=== PATIENT | male | born 1955 | race Hispanic/Latino ===

== ENCOUNTER 2021-06-19 13:18 | Emergency (ER) | payer OTHER, SELFPAY ==
--- NOTE | ~2021-06-19 | CT_ITS ---
EXAMINATION: CT abdomen pelvis w con DATE: 06/19/2021 16:04 INDICATION: Right upper quadrant and epigastric abdominal pain. TECHNIQUE: Computed tomography (CT) of the abdomen and pelvis was performed with 100 mL Omnipaque 350 intravenous contrast. Automated exposure control and iterative reconstruction technique were employe d. The dose-length product was 565.61 mGy-cm. COMPARISON: None. FINDINGS: The visualized portions of the lung bases demonstrate mild atelectasis. No pleural effusion . Cardiomegaly is noted. No pericardial effusion. The liver demonstrates a nodular surface contour, c onsistent with cirrhosis. There is a paraumbilical portacaval shunt. The gallbladder is distended. Th e spleen is normal in size. The pancreas, adrenal glands, and kidneys are normal. There are no dilate d loops of bowel. The appendix is normal. There are no pathologically enlarged lymph nodes. There is no free intraperitoneal fluid. There is mild lumbar spondylosis. IMPRESSION: 1. Cirrhosis of the liver with portal venous hypertension. 2. Gallbladder distention, which may secondary to fasting. Correlate with physical exam to exclude ac marisela cholecystitis. Reviewed, dictated and finalized at location A. IMPRESSION: 1. Cirrhosis of the liver with portal venous hypertension. 2. Gallbladder distention, which may secondary to fasting. Correlate with physi mio exam to exclude acute cholecystitis.
[2021-06-19 13:27] VITALS: BP 122/69; PULSE 98; RESP 14; TEMP 36.1; O2SAT 99
[2021-06-19 14:12] VITALS: BP 117/71; PULSE 86; RESP 15; O2SAT 93
[2021-06-19] MEDS: SODIUM CHLORIDE 0.9% IV 1,000 ML 999 ML IV CONT (14:22)
[2021-06-19] MEDS: ONDANSETRON INJ 4 MG/2 ML VIAL IV PUSH (14:22)
[2021-06-19 14:31] LABS: Basophils Percent Auto 0.4 % (0.2-1.2); Eosinophils Percent Auto 0.1 % (0-4.4); Hematocrit 49.9 % (42.0-52.0); Hemoglobin 17.1 g/dL (14.0-18.0); Immature Granulocyte Absolute 0.02 K/mm3 (0.00-0.031); Immature Granulocyte Percent A 0.2 % (0-0.5); Lymphocytes Absolute Auto 0.68 K/mm3 (0.9-3.2); Lymphocytes Percent Auto 6.8 % (18.3-44.2); Mean Corpuscular HGB Conc 34.3 g/dl (32-36); Mean Corpuscular Hemoglobin 34.6 pg (26-34); Mean Platelet Volume 12.5 fl (7.4-10.4); Monocytes Absolute Auto 0.7 K/mm3 (0.1-0.6); Monocytes Percent Auto 6.9 % (2.6-8.5); Neutrophils Absolute Auto 8.6 K/mm3 (1.3-6.7); Neutrophils Percent Auto 85.6 % (45.5-73.1); Platelet Count Result 97 k/mm3 (150-375); Red Blood Count 4.94 M/mm3 (4.6-6.20); Red Cell Distribution Width 13.5 % (11.5-14.5)
[2021-06-19 14:41] LABS: Lactic Acid Reflex 1.6 mmol/L (0.7-2.1)
[2021-06-19 14:52] LABS: Add Urine Microscopic? YES; Appearance Urine Cloudy (Clear); Bacteria Urine Trace /hpf; Bilirubin Urine Negative (Negative); Blood Urine Negative (Negative); Color Urine Amber (Yellow); Glucose Urine UA Negative (Negative); Hyaline Casts Urine 20-29 /lpf; Ketones Urine Negative (Negative); Leukocyte Esterase Ur Negative LEU/UL (Negative); Mucus Urine Heavy /lpf; Nitrate Urine Negative (Negative); Protein Urine 2+ mg/dL (Negative); Squamous Epithelial Cell Urine Rare /hpf (Few)
[2021-06-19 14:54] LABS: Specific Grav Ur 1.033 (1.001-1.035)
--- NOTE | 2021-06-19 15:08 | ED.GENADULT ---
HPI - General Adult General Chief complaint: Nausea/Vomiting/Diarrhea Stated complaint: Nausea vomiting, abd pain Time Seen by Provider: 06/19/21 13:49 Source: patient History of Present Illness HPI narrative: 65-year-old male presented to the emergency department for evaluation of upper abdominal pain. Patient states that last night he was having full body pain and did have a subjective fever. Patient states when he woke up this morning he was only having upper abdominal pain. Patient does report associated nausea and vomiting and diarrhea. Patient does have a previous history of alcohol abuse but family states he has not been drinking any alcohol over the last month. Family member acted as combat information center officer. she was offered to use the translation computer but she declined. Related Data Allergies Allergy/AdvReac Type Severity Reaction Status Date / Time No Known Allergies Allergy Unverified 08/22/18 19:25 Review of Systems Review of Systems: CONSTITUTIONAL: Subjective fever EYES: Denies visual changes, redness, or discharge. ENT: Denies rhinorrhea, congestion, sore throat, or otalgia. CARDIOVASCULAR: Denies chest pain, palpitations, or edema. RESPIRATORY: Denies cough or dyspnea. GASTROINTESTINAL: Right upper quadrant pain/epigastric pain. Nausea and vomiting diarrhea GENITOURINARY: Denies dysuria or hematuria. SKIN: Denies rash or itching. MUSCULOSKELETAL: Denies back pain, joint pain, or myalgia. NEUROLOGIC: Denies headache, numbness, or weakness. Exam Narrative: APPEARANCE: Well appearing, no pain, no distress, well-nourished. HEAD: normocephalic, atraumatic. EYES: PERRLA/EOMI, conjunctivae clear. NOSE: Normal no drainage NECK: Supple. No adenopathy, no masses. RESPIRATORY: Airway patent, respirations nonlabored. Clear to auscultation bilaterally, no rales, rhonchi, wheezing. CARDIOVASCULAR: Regular rate and rhythm without murmurs rubs or gallops. ABDOMINAL: Right upper quadrant epigastric tenderness to palpation. No peritoneal signs. Otherwise benign abdomen. MUSCULOSKELETAL: Moves all extremities. Strength/ROM intact, No edema, No calf tenderness. NEURO: Alert. Cranial nerves II through XII intact. Grossly intact SKIN: Warm, dry. Normal Color Course Course Emergency Course: Patient does have elevated liver enzymes. And a distended gallbladder on CT. Case was discussed with Dr. Ovalles. Patient is afebrile with no leukocytosis. Dr. ovalles felt that the patient was not having acute cholecystitis but that his liver enzymes were most likely due to his cirrhosis. He felt the patient would be suitable for discharge to home with close outpatient follow-up. He did not feel the patient was a strong surgical candidate due to his history of cirrhosis. Patient did feel improved with treatment in the department. Patient was started on Augmentin. Patient and patient's family were updated on the results of the work-up and the importance of close follow-up. Patient was informed on reasons to return to the emergency department including worsening pain or fever. On repeat exam patient had minimal tenderness to palpation and was resting comfortably. Vital Signs Vital signs: Vital Signs Temperature 96.9 F L 06/19/21 13:27 Pulse Rate 98 06/19/21 13:27 Respiratory Rate 14 06/19/21 13:27 Blood Pressure 122/69 06/19/21 13:27 Pulse Oximetry 99 06/19/21 13:27 Temperature 96.9 F L 06/19/21 13:27 Pulse Rate 96 06/19/21 16:39 Respiratory Rate 16 06/19/21 16:39 Blood Pressure 134/77 06/19/21 16:39 Pulse Oximetry 94 06/19/21 16:39 Medical Decision Making Vital Signs Vital Signs: Vital Signs Temperature 96.9 F L 06/19/21 13:27 Pulse Rate 98 06/19/21 13:27 Respiratory Rate 14 06/19/21 13:27 Blood Pressure 122/69 06/19/21 13:27 Pulse Oximetry 99 06/19/21 13:27 Temperature 96.9 F L 06/19/21 13:27 Pulse Rate 96 06/19/21 16:39 Respiratory Rate 16 06/19/21 16:39 Blood Pressure
[2021-06-19 15:32] LABS: Alanine Aminotransferase 68 U/L (4-50); Albumin Level 4.2 g/dL (3.5-5.1); Alkaline Phosphatase 165 U/L (38-126); Anion Gap 9 mmol/L (8-16); Aspartate Amino Transferase 144 U/L (17-59); Bilirubin,Total 2.3 mg/dL (0.2-1.3); Blood Urea Nitrogen 21 mg/dL (9-20); Calcium 8.5 mg/dL (8.4-10.2); Carbon Dioxide 19 mmol/L (22-30); Chloride 112 mmol/L (98-107); Estimated CRCL calculation 67 ml/min; Estimated Glomerular Filt Rate > 60; Glucose 139 mg/dL (65-110); Lipase 73 U/L (23-300); Potassium 3.7 mmol/L (3.4-5.0); Sodium 140 mmol/L (137-145)
[2021-06-19] MEDS: HYDROmorphone HCL INJ (*CRX) 1 MG/ML SYR IV PUSH (15:52)
[2021-06-19 15:53] VITALS: BP 133/77; PULSE 93; RESP 15; O2SAT 96
--- NOTE | 2021-06-19 15:56 | PC.NURSE ---
Pt to CT scan via stretcher at this time.
[2021-06-19 16:39] VITALS: BP 134/77; PULSE 96; RESP 16; O2SAT 94
[2021-06-19] MEDS: AMOXICILLIN/CLAVULANATE K 875-125 MG TAB 1 TABLET PO (17:06)
[2021-06-19 17:21] LABS: INR 1.4; Prothrombin Time 16.9 Seconds (11.1-14.7)
== END 2021-06-19 17:38 | disposition home or self-care (01) ==
PROVIDERS: Emergency Provider Emergency Medicine; PCP Registered Nurse
DX: R10.10 Upper abdominal pain, unspecified (principal); K74.60 Unspecified cirrhosis of liver; K76.6 Portal hypertension
CPT/HCPCS: 36415; 74177; 80053; 81001; 83605; 83690; 85025; 85610; 87086; 87088; 96361; 96374; 96375; 99284; A9270; J1170; J2405; J7030; Q9967

== ENCOUNTER 2022-03-08 11:28 | Emergency (ER) | payer OTHER, SELFPAY ==
[2022-03-08 11:47] VITALS: BP 145/67; PULSE 70; RESP 16; TEMP 36.9; O2SAT 99
--- NOTE | 2022-03-08 12:35 | ED.URI ---
HPI - URI/Sore Throat General Chief Complaint: Upper Respiratory Infection Stated Complaint: Bodyaches,Chills,Cough Time Seen by Provider: 03/08/22 12:28 Source: patient and RN notes reviewed Mode of arrival: ambulatory Limitations: no limitations History of Present Illness HPI Narrative: 66-year-old male presented for complaint of body aches, cough, headache for 1 week. He also endorses upper respiratory symptoms for about a month. He has not taken anything for symptoms. He denies shortness of breath, wheezing, nausea, vomiting, diarrhea, fevers or chills. He states the body aches are the most concerning. Patient is primarily Amharic-speaking and requests his family member to translate today. Son reports he appears to be short of breath with exertion. MD elicited complaint: cough Related Data Home Medications Medication Instructions Recorded Confirmed atorvastatin 40 mg tablet 40 mg PO DAILY 03/08/22 03/08/22 famotidine 20 mg tablet 20 mg PO DAILY 03/08/22 03/08/22 meloxicam 15 mg tablet 15 mg PO DAILY 03/08/22 03/08/22 nadolol 20 mg tablet 20 mg PO DAILY 03/08/22 03/08/22 nitroglycerin 0.4 mg sublingual 0.4 mg sublingual DIRECTED 03/08/22 03/08/22 tablet (Nitrostat) Allergies Allergy/AdvReac Type Severity Reaction Status Date / Time No Known Allergies Allergy Verified 03/08/22 11:48 Review of Systems Review of Systems: ROS per HPI Exam Narrative: GENERAL: Ill-appearing, nontoxic EYES: PERRLA, conjunctivae clear ENT: Mucous membranes moist. TMs pearly hicks with dull light reflex bilaterally; no tragal tenderness. CHEST: Clear to auscultation, breath sounds equal. No wheezing, rhonchi, rales, or stridor. No respiratory distress, speaks in full sentences. HEART: Regular rate and rhythm. SKIN: Warm, dry, no rash. NEURO: Alert and oriented x3. PSYCH: Normal mood and affect Course Course Emergency Course: Patient is aware of diagnosis, understands and agrees to treatment plan. Anticipatory guidance given. Patient agrees to follow-up as directed and is aware of reasons to seek care at the emergency department. Portions of this record may have been created with voice recognition software Level of Care: Express Care Visit Vital Signs Vital signs: Vital Signs Temperature 98.4 F 03/08/22 11:47 Pulse Rate 70 03/08/22 11:47 Respiratory Rate 16 03/08/22 11:47 Blood Pressure 145/67 H 03/08/22 11:47 Pulse Oximetry 99 03/08/22 11:47 Oxygen Delivery Room Air 03/08/22 11:47 Temperature 98.4 F 03/08/22 11:47 Pulse Rate 70 03/08/22 11:47 Respiratory Rate 16 03/08/22 11:47 Blood Pressure 145/67 H 03/08/22 11:47 Pulse Oximetry 99 03/08/22 11:47 Oxygen Delivery Room Air 03/08/22 11:47 reviewed MDM - URI/Sore Throat MDM Narrative Medical decision making narrative: Advised supportive measures and signs/symptoms to go to the ER. Pt is appropriate for outpt treatment and f/u. Differential Diagnosis Differential diagnosis: Likely upper respiratory infection, sinusitis, viral infection and bronchitis Discharge Plan Discharge Clinical Impression: Upper respiratory infection Patient Disposition: Home, Self-Care Condition: Stable Instructions: Antibiotic Form, Rhinosinusitis (ED) Additional Instructions: Avoid crowds until you do not have a fever and symptoms are improved Take medication as directed Recommend Flonase spray and Zyrtec (or Claritin/Eve) over the counter Cough syrup may cause drowsiness; avoid driving or take it at night time. Tylenol 1000mg every 8 hours as needed for pain/bodyaches Symptomatic treatment includes: rest, fluids, and increase humidity of the air at home. Follow up with your primary care provider in 1 week Go to the ER for worsening symptoms or concerns Prescriptions: New prednisone 50 mg tablet 50 mg PO DAILY Qty: 5 0RF doxycycline hyclate 100 mg tablet 100 mg PO BID 5 Days Qty: 10 0RF No Action
== END 2022-03-08 12:48 | disposition home or self-care (01) ==
PROVIDERS: Emergency Provider Nurse Practitioner Family; PCP Registered Nurse
DX: J06.9 Acute upper respiratory infection, unspecified (principal)
CPT/HCPCS: 99213; G0463

== ENCOUNTER 2022-05-29 10:54 | Emergency (ER) | payer OTHER, SELFPAY ==
--- NOTE | 2022-05-29 10:55 | ED.BACK ---
HPI - Back Pain/Injury General Chief Complaint: Urogenital-Male Stated Complaint: back pain Time Seen by Provider: 05/29/22 10:55 Source: patient and geodetic surveyor technologist (Grandson) Mode of arrival: ambulatory Limitations: no limitations History of Present Illness HPI Narrative: Mr. Mayberry is a 66-year-old male patient presenting to the clinic today with complaints of thoracic back pain x2 months. He reports pain is worse with movement and states that sharp times. Currently rates pain 7/10. He also reports some pain with urination at times. He denies any fever or chills. He denies any difficulty urinating. He denies any saddle anesthesia or loss of bowel bladder. He denies any known injury to his back. 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 Related Data Home Medications Medication Instructions Recorded Confirmed atorvastatin 40 mg tablet mg 05/29/22 famotidine 20 mg tablet mg 05/29/22 05/29/22 nadolol 20 mg tablet mg 05/29/22 Allergies Allergy/AdvReac Type Severity Reaction Status Date / Time No Known Allergies Allergy Verified 05/29/22 11:06 Review of Systems Review of Systems: Pertinent positives per HPI. Patient denies any fever, chills, rash, headache, visual changes, dizziness, cough, runny nose, sore throat, shortness of breath, chest pain, palpitations, nausea, vomiting, diarrhea, constipation, abdominal pain, or any urinary issues. PMFSH Comments At the time of my signature, I reviewed and agree with the nursing past medical, surgical, social, and family history. There is no relevant family history pertinent to the patient complaint. Exam Narrative: General: Well-developed, well nourished, in no apparent distress Head: Normocephalic, atraumatic. Cardio: Regular rate and rhythm, s1 and s2 normal, no murmur appreciated. Resp: Clear to auscultation bilaterally, no rhonchi, rales, wheezing or rubs. Musculoskeletal: No deformity, non-tender to palpation, grossly normal range of motion, pain with bending and flexion of the thoracic back, bilateral lower muscle strength strong and equal, peripheral pulse strong, patellar reflexes 2+, no edema, no cyanosis, normal gait and station Course Course Emergency Course: Portions of this record may have been created with voice recognition software. Level of Care: Express Care Visit Vital Signs Vital signs: Vital Signs Temperature 36.6 C 05/29/22 11:09 Pulse Rate 68 05/29/22 11:09 Respiratory Rate 16 05/29/22 11:09 Blood Pressure 136/59 L 05/29/22 11:09 Pulse Oximetry 99 05/29/22 11:09 Oxygen Delivery Room Air 05/29/22 11:09 Temperature 36.6 C 05/29/22 11:09 Pulse Rate 68 05/29/22 11:09 Respiratory Rate 16 05/29/22 11:09 Blood Pressure 136/59 L 05/29/22 11:09 Pulse Oximetry 99 05/29/22 11:09 Oxygen Delivery Room Air 05/29/22 11:09 Vital signs reviewed MDM - Back Pain/Injury MDM Narrative Medical decision making narrative: At the time of visit patient is resting comfortably on the exam table. UA was obtained and was negative for any infection or blood. I suspect the patient has thoracic back/muscle strain. Will send in Rx for Flexeril and Naproxen. Supportive care was discussed with the patient and his grandson and they voiced understanding. Differential Diagnosis Differential diagnosis: Likely lumbar radiculopathy, sciatica, pyelonephritis, thoracic back pain and other (Thoracic back strain, UTI, prostatitis, constipation) Lab Data Labs: Urine Glucose Negative Reference Range: Negative Urine Bilirubin Negative Reference Range: Negative Urine Ketone Negative Reference Range: Negative Urine Specific [place] 1.030
[2022-05-29 11:09] VITALS: BP 136/59; PULSE 68; RESP 16; TEMP 36.6; O2SAT 99
== END 2022-05-29 11:42 | disposition home or self-care (01) ==
PROVIDERS: Emergency Provider Nurse Practitioner Family; PCP Registered Nurse
DX: M54.6 Pain in thoracic spine (principal)
CPT/HCPCS: 81003; 99213; G0463

== ENCOUNTER 2024-04-22 15:42 | Emergency (ER) | payer OTHER, SELFPAY ==
--- NOTE | ~2024-04-22 | CT_ITS ---
EXAMINATION: CTA brain carotid DATE: 04/23/2024 6:12 [employer]LECT[employer]IC [employer]ANT MECH[employer]ICAL ENGINEER INDICATION: Vertigo TECHNIQUE: Computed tomographic angiography (CTA) of the head was performed without and with 100 mL O mnipaque-350 intravenous contrast. CTA of the neck was performed with intravenous contrast. The dose- length product was 1747.88 mGy-cm. Maximum intensity projection and volume rendered 3D-reconstruction s were created by the technologist on a separate workstation. COMPARISON: None. FINDINGS: HEAD CTA: No acute intracranial hemorrhage, infarction, mass or mass effect. Generalized atrophy. The re are scattered mild periventricular and subcortical white matter changes, most likely related to sm all vessel ischemic disease (microangiopathy). There is intracranial atherosclerosis. Basilar cistern s are patent. Paranasal sinuses and mastoids are pneumatized. No depressed skull fractures. Mild muco nicole thickening of the maxillary sinuses. Vertebral arteries are symmetric and codominant. Intracrania l arteries are unremarkable without significant stenosis, occlusion or aneurysm. NECK CTA: There is mild atherosclerosis of the common and internal carotid arteries with less than 20 % stenosis. No evidence for dissection or occlusion. Thyroid gland contains multiple small subcentime ter hypodensities, likely benign. There is atherosclerosis of the aorta. Mild mediastinal lymphadenop athy, likely reactive. Lung parenchyma is unremarkable. IMPRESSION: 1: No acute intracranial abnormality. 2: No significant vascular abnormality of the head or neck. Reviewed, dictated and finalized at location A. [employer]ANT MECHANICAL ENGINEER
--- NOTE | ~2024-04-22 | CT_ITS ---
EXAMINATION: Consultation CT DATE: 04/22/2024 23:56 INDICATION: PLEURAL EFFUSION CARDIOMEGALLY TECHNIQUE: Computed tomography (CT) of the chest was performed with 100 mL Omnipaque-350 intravenous contrast. Automated exposure control and iterative reconstruction technique were employed. The dose-l ength product was .00 mGy-cm. COMPARISON: None. FINDINGS: CHEST: Thoracic aorta: No significant dilation. No dissection. Mild aortic atherosclerotic calcification. Lung parenchyma and airways: Peripheral and basilar reticular and groundglass opacities with subtle a reas of bronchiectasis. No significant honeycombing or subpleural sparing. Patent airways. Thoracic inlet, axillae and chest wall: No thyroid or soft tissue mass. No axillary lymphadenopathy. Mediastinum: No mass or lymphadenopathy. Heart and pericardium: Mild cardiomegaly. No pericardial effusion. Coronary artery calcifications: Mild. Pleura: No effusion or mass. Upper abdomen: Nodular liver border. Thoracic bones: No acute osseous finding in the chest. IMPRESSION: No acute thoracic process detected. 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 Mild cardiomegaly. No pleural effusion is detected. Cirrhotic change in the liver. Reviewed, dictated and finalized at location K. T[employer] ASS[employer] GUNNER
--- NOTE | ~2024-04-22 | XR_ITS ---
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 RESULT: Lines, tubes, and devices: None. Lungs and pleura: Mild diffuse reticular opacities. Cardiomediastinal silhouette: Mild cardiomegaly. Other: No acute osseous or upper abdominal finding. IMPRESSION: Mild chronic interstitial change. Mild cardiomegaly. Reviewed, dictated and finalized at location K. STAND VENDOR
[2024-04-22 16:23] VITALS: BP 142/67; PULSE 65; RESP 16; TEMP 36.7; O2SAT 96
--- OUTSIDE RECORDS SUMMARY | 2024-04-22 16:27 | XMS_ITS | Patient Health Summary ---
Author Organization [facility] Address [address] [place] [address] Care Team Providers Care Sawmill Tally Clerk Name Role Phone Eileen Joy MD Primary Care Provider [phone] Note from [facility],non-owned Affiliates and Associated Physician Practices is amultiple site organization consisting of ambulatory clinics and hospital sitesin [place], [place], [place] and [place]. This disclosure is being madepursuant to the Care Everywhere program and may not contain all information available regarding this patient. Last updated 17.[facility] [employer] Allergies No known active allergies Medications * Be aware that medications may not be up to date on this document. Alwaysverify current medications with the patient. * valsartan (Diovan) 80 MG tablet(Started 11/11/2023) 1 (one) tablet once daily * atorvastatin (Lipitor) 40 MG tablet(Started 10/30/2023) Take 1 (one) tablet by mouth once daily * famotidine (Pepcid) 20 MG tablet(Started 11/18/2023) Take 1 (one) tablet by mouth 2 times daily * nadolol (Corgard) 20 MG tablet(Started 10/30/2023) Take 1 (one) tablet by mouth once daily * fluticasone propionate (Flonase) 50 MCG/ACT nasal spray(Started 08/06/2023) [place] 2 (two) sprays into each nostril once daily * ondansetron (Zofran) 4 MG tablet(Started 11/26/2023) Take 1 (one) tablet by mouth every 6 hours as needed for Nausea/Vomiting * pantoprazole EC (Protonix) 40 MG tablet(Started 11/26/2023) Take 1 (one) tablet by mouth once daily Social History Tobacco Use Types Packs/Day Years Used Date Smoking Tobacco: Never Smokeless Tobacco: Never Tobacco Cessation:Counseling Given: Not Answered Alcohol Use Standard Drinks/Week Comments Yes 100 (1 standard drink = 0.6 oz p ure alcohol) last drink was 1 month ago Sex and Gender Information Value Date Recorded Sex Assigned at Not on file Gender Identity Not on file Sexual Orientation Not on file Last Filed Vital Signs Vital Sign Reading Time Taken Comments Blood Pressure 132/86 11/25/2023 5:32 PM CDT Pulse 85 11/25/2023 5:32 PM CDT Temperature 37.5 ??C (99.5 ??F) 11/25/2023 5:32 PM CD T Respiratory Rate 16 11/25/2023 5:32 PM CDT Oxygen Saturation 94% 11/25/2023 5:32 PM CDT Inhaled Oxygen Concentration - - Weight 85.7 kg (189 lb) 11/25/2023 5:32 PM CDT Height 162.6 cm (5' 4 ) 11/25/2023 5:32 PM CDT Body Mass Index 32.44 11/25/2023 5:32 PM CDT Procedures * XR CHEST 1VW PORTABLE(Performed 11/26/2023) Performed for Nausea and vomiting, unspecified vomiting type, Gastritis and duodenitis * PT-INR [facility](Performed 11/26/2023) * CBC W AUTO DIFFERENTIAL(Performed 11/26/2023) * BLOOD TYPE VERIFICATION(Performed 11/26/2023) * CT ABDOMEN PELVIS W CONTRAST(Performed 11/25/2023) Performed for Nausea and vomiting, unspecified vomiting type * TROPONIN-I HIGH SENSITIVE REFLEX 1HOUR(Performed 11/25/2023) * EKG 12-LEAD(Performed 11/25/2023) Performed for Nausea and vomiting, unspecified vomiting type * TYPE + SCREEN PANEL(Performed 11/25/2023) * TROPONIN-I HIGH SENSITIVE BASELINE + 1HR(Performed 11/25/2023) * TROPONIN-I HIGH SENSITIVE(Performed 11/25/2023) * LIPASE BLOOD(Performed 11/25/2023) * COMPREHENSIVE METABOLIC PANEL(Performed 11/25/2023) * CBC W AUTO DIFFERENTIAL(Performed 11/25/2023) * EKG 12-LEAD(Performed 11/25/2023) Performed for Nausea and vomiting, unspecified vomiting type Results * XR CHEST 1VW PORTABLE (11/26/2023 10:23 AM CDT) Anatomical Region Laterality Modality Chest Radiographic [place] ging 11/26/2023 10:2 3 AM CDT Narrative 11/26/2023 11:05 AM CDT PROCEDURE: ??XR CHEST 1VW PORTABLE, DATE/TIME OF EXAM: ??11/26/2023 10:23 AM, LOCATION ??[facility] INDICATION: R11.2: Nausea and vomiting, unspecified vomiting type K29.90: Gastritis and duodenitis ADDITIONAL CLINICAL INFORMATION: Ordering Provider Reason For Exam: ??infiltrates ? COMPARISON: None. TECHNIQUE: Frontal radiograph of the chest. FINDINGS/IMPRESSION: Mild bibasilar opacities may represent atelectasis, infection, and/or aspiration. The upper lung navarro are clear. No pleural effusion or pneumothorax. The cardiomediastinal silhouette is normal for portable technique. Atherosclerotic calcification of the aorta. There are healed/healing right lower rib fractures laterally. No acute osseous abnormality is evident. Report dictated by John Ling MD, (Mobile Engineer). I, Rosa Rosales MD have personally reviewed and interpreted this examination/study. > Interpreting Provider: Rosa Rosales MD on 11/26/2023 11:05 AM Procedure Note Rosa Rosales MD - 11/26/2023 PROCEDURE: XR CHEST 1VW PORTABLE, DATE/TIME OF EXAM: 11/26/2023 10:23AM, LOCATION [facility] INDICATION: R11.2: Nausea and vomiting, unspecified vomiting type K29.90: Gastritis and duodenitis ADDITIONAL CLINICAL INFORMATION: Ordering Provider Reason For Exam: infiltrates ? COMPARISON: None. TECHNIQUE: Frontal radiograph of the chest. FINDINGS/IMPRESSION: Mild bibasilar opacities may represent atelectasis, infection, and/or aspiration. The upper lung navarro are clear. No pleural effusion or pneumothorax. The cardiomediastinal silhouette is normal for portable technique. Atherosclerotic calcification of the aorta. There are healed/healing right lower rib fractures laterally. No acute osseous abnormality is evident. Report dictated by John Ling MD, (Mobile Engineer). I, Rosa Rosales MD have personally reviewed and interpreted this examination/study. > Interpreting Provider: Rosa Rosales MD on 11/26/2023 11:05 AM Kelsey Shepherd MD DIAGNOSTIC IMAGING O RDERABLES * (ABNORMAL) PT-INR [facility] (11/26/2023 10:06 AM CDT) Pathologist [facility] PT 16.4(H) 12.1 - 14.8 Seconds 11/26/2023 10:53 AM T [facility]OR[facility]ORY [facility] INR 1.4 See Comment 11/26/2023 10:53 AM [facility] Comment:The suggested therap eutic range for standard coumadin (warfarin) therapy is an INR of 2.0-3.0. For high-risk patients (Mechanical Mitral Valve Prosthesis, etc.), the suggested prophylactic therapeutic range is an INR of 2.5-3.5. Blood BLOOD SPECIMEN / Unknown Venipuncture / Unknown 11/26/2023 10:06 AM CDT 11/26/2023 10:13 AM CDT Kelsey Shepherd MD LAB - COAGULATION OR DERABLES [address] [address], [facility] [phone] * (ABNORMAL) CBC W AUTO DIFFERENTIAL (11/26/2023 10:06 AM CDT) Only the most recent of2 resultswithin the time period is included. WBC 6.2 4.0 - 10.7 x10E9/L 11/26/2023 10:44 AM [facility] RBC Count 4.23(L) 4.30 - 5.80 x10E12/L 11/26/2023 10:44 AM [facility] Hemoglobin 14.6 13.3 - 17.5 g/dL 11/26/2023 10:44 AM [facility] Hematocrit 41.9 38.7 - 51.1 % 11/26/2023 10:44 AM [facility] MCV 99.1(H) 80.0 - 98.0 fL 11/26/2023 10:44 AM [facility] MCH 34.5(H) 26.7 - 33.6 pg 11/26/2023 10:44 AM [facility] MCHC 34.8 31.7 - 36.3 g/dL 11/26/2023 10:44 AM [facility] RDW-CV 13.8 11.3 - 14.8 % 11/26/2023 10:44 AM [facility] Platelet Count 62(L) 150 - 420 x10E9/L 11/26/2023 10:44 AM [facility] MPV 12.6(H) 7.8 - 11.4 fL 11/26/2023 10:44 AM [facility] Neutrophil % 54.5 41.0 - 74.0 % 11/26/2023 10:44 AM [facility] Lymphocyte % 35.3 17.0 - 47.0 % 11/26/2023 10:44 AM [facility] Monocyte % 8.4 3.0 - 11.0 % 11/26/2023 10:44 AM [facility] Eosinophil % 1.0 0.0 - 7.0 % 11/26/2023 10:44 AM [facility] Basophil % 0.6 0.0 - 1.6 % 11/26/2023 10:44 AM [facility] Immature Granulocytes % 0.2 0.0 - 1.0 % 11/26/2023 10:44 AM [facility] Neutrophil Absolute 3.36 1.60 - 7.50 x10E9/L 11/26/2023 10:44 AM [facility] Lymphocyte Absolute 2.18 1.00 - 4.40 x10E9/L 11/26/2023 10:44 AM [facility] Monocyte Absolute 0.52 0.15 - 1.00 x10E9/L 11/26/2023 10:44 AM [facility] Eosinophil Absolute 0.06 0.00 - 0.60 x10E9/L 11/26/2023 10:44 AM [facility] Basophil Absolute 0.04 0.00 - 0.13 x10E9/L 11/26/2023 10:44 AM CDT [facility] Blood BLOOD SPECIMEN / Unknown Venipuncture / Unknown 11/26/2023 10:06 AM CDT 11/26/2023 10:25 AM CDT Kelsey Shepherd MD LAB - HEMATOLOGY ORD ERABLES [facility] [address] [place] [address], [facility] [phone] * BLOOD TYPE VERIFICATION (11/26/2023 7:27 AM CDT) ABO Rh O POS 11/26/2023 8:0 1 AM CDT [facility] BLOOD BANK LAB Blood Bank BLOOD SPECIMEN / Unknown Venipuncture / Unknown 11/26/2023 7:27 AM CDT 11/26/2023 7:34 AM CDT Reymundo Wilkins MD LAB - BLOOD BANK ORD [employer] Performing Organization Address City/[facility]/ZIP Co de Phone Number [facility] B[facility]OD BANK LAB [address] [place] [address], [facility] [phone] * CT Abdomen Pelvis W Contrast (11/25/2023 9:24 PM CDT) Anatomical Region Laterality Modality Abdomen, Pelvis Computed Tomogra phy 11/25/2023 9:27 PM CDT Impressions 11/25/2023 9:52 PM CDT Impression: 1.The first and second portions of the duodenum appear edematous thickened with associated surrounding fat stranding which may represents duodenitis. No discrete evidence of perforation. No free air is identified. 2.Suggestion of hepatic parenchymal disease with the sequelae of portal hypertension. 3.Reticular based opacities may represent sequelae of interstitial disease versus atelectasis/scarring. > Dictated by Eamon Senior DO (associate vice president). Hernando Salazar MD have personally reviewed and interpreted this examination/study. > Interpreting Provider: Hernando Srinivasan MD on 11/25/2023 9:52 PM Narrative 11/25/2023 9:52 PM CDT PROCEDURE: ??CT ABDOMEN PELVIS W CONTRAST, DATE/TIME OF EXAM: ??11/25/2023 9:24 PM, LOCATION ??[facility] INDICATION: R11.2: Nausea and vomiting, unspecified vomiting type ADDITIONAL CLINICAL INFORMATION: Ordering Provider Reason For Exam: ???perf COMPARISON: None. TECHNIQUE: CT of the abdomen and pelvis was performed following the uneventful administration of 100 mL of Isovue 370 intravenous contrast according to standard protocol. Findings: Lower Chest: Reticular based opacities may represent sequelae of interstitial disease versus atelectasis/scarring. There is otherwise dependent atelectasis bilaterally. The coronary arteries are atherosclerotic. Liver: The liver has a nodular surface, may represent hepatic parenchymal disease. Gallbladder and Bile Ducts: Normal. Spleen: Normal. Pancreas: Normal. Adrenals: Normal. Kidneys: Normal. Gastrointestinal: The stomach appears unremarkable. The first and second portions of the duodenum appear edematous thickened which may represents duodenitis. No discrete evidence of perforation. There is associated mild fat stranding surrounding the first and second portions of the duodenum. The remainder of the small bowel appears within normal limits. Normal appendix. Mesentery/Peritoneum/Retroperitoneum: No free fluid in the abdomen or pelvis. No free intraperitoneal air. No abdominal or retroperitoneal lymphadenopathy. Bladder: Normal. Reproductive Organs: The prostate is normal. Vasculature: Atherosclerotic calcification of the aorta and its branch vessels. Sequelae of portal hypertension including perigastric varices, and perisplenic varices. There is also subtle stranding surrounding the celiac trunk and superior mesenteric artery takeoffs. This is nonspecific. Bones: Bone windows demonstrate no suspicious lytic or blastic lesions. The visible osseous structures are intact. Mild to moderate degenerative changes within the spine. Soft tissues: Normal. Procedure Note Esme Srinivasan MD - 11/25/2023 PROCEDURE: CT ABDOMEN PELVIS W CONTRAST, DATE/TIME OF EXAM: 49:24 PM, LOCATION [facility] INDICATION: R11.2: Nausea and vomiting, unspecified vomiting type ADDITIONAL CLINICAL INFORMATION: Ordering Provider Reason For Exam: ?perf COMPARISON: None. TECHNIQUE: CT of the abdomen and pelvis was performed following the uneventful administration of 100 mL of Isovue 370 intravenous contrast according to standard protocol. Findings: Lower Chest: Reticular based opacities may represent sequelae of interstitial disease versus atelectasis/scarring. There is otherwise dependent atelectasis bilaterally. The coronary arteries are atherosclerotic. Liver: The liver has a nodular surface, may represent hepatic parenchymaldisease. Gallbladder and Bile Ducts: Normal. Spleen: Normal. Pancreas: Normal. Adrenals: Normal. Kidneys: Normal. Gastrointestinal: The stomach appears unremarkable. The first and second portions of the duodenum appear edematous thickened which may represents duodenitis. No discrete evidence of perforation. There is associated mild fat stranding surrounding the first and second portions of the duodenum. The remainderof the small bowel appears within normal limits. Normal appendix. Mesentery/Peritoneum/Retroperitoneum: No free fluid in the abdomen or pelvis. No free intraperitoneal air. No abdominal or retroperitoneal lymphadenopathy. Bladder: Normal. Reproductive Organs: The prostate is normal. Vasculature: Atherosclerotic calcification of the aorta and its branch vessels.Sequelae of portal hypertension including perigastric varices, and perisplenic varices. There is also subtle stranding surrounding the celiac trunk and superior mesenteric artery takeoffs. This is nonspecific. Bones: Bone windows demonstrate no suspicious lytic or blastic lesions. The visible osseous structures are intact. Mild to moderate degenerative changes within the spine. Soft tissues: Normal. Impression: 1.The first and second portions of the duodenum appear edematousthickened with associated surrounding fat stranding which may representsduodenitis. No discrete evidence of perforation. No free air is identified. 2.Suggestion of hepatic parenchymal disease with the sequelae of portal hypertension. 3.Reticular based opacities may represent sequelae of interstitialdisease versus atelectasis/scarring. > Dictated by Eamon Senior DO (associate vice president). IHernando MD have personally reviewed and interpreted this examination/study. > Interpreting Provider: Hernando Srinivasan MD on 11/25/2023 9:52 PM [address]ym[address] Wilkins MD CT ORDERABLES * TROPONIN-I HIGH SENSITIVE REFLEX 1HOUR (11/25/2023 7:58 PM CDT) Troponin I High Sensitive <3 <=35 ng/L 11/25/2023 8:55 PM CDT [facility] Delta Troponin I HS 11/25/2023 8:55 PM CDT [facility] Comment:Delta value intentio lori not calculated. Baseline to 1 hour specimen collection interval exceeded. Blood BLOOD SPECIMEN / Unknown Venipuncture / Unknown 11/25/2023 7:58 PM CDT 11/25/2023 8:19 PM CDT Reymundo Wilkins MD LAB - CHEMISTRY HERLINDA HERNÁNDEZ Performing Organization Address City/[facility]/ZIP Co de Phone Number [facility] [address] [place] [address], [facility] [phone] * EKG 12-LEAD (11/25/2023 6:32 PM CDT) Only the most recent of2 resultswithin the time period is included. Ventricular Rate 68 BPM [facility] MUSE Atrial Rate 68 BPM [facility] P-R Interval 146 ms [facility] QRS Duration ms 90 ms [facility] Q-T Interval ms 450 ms [facility] MUSE QTC Calculation (Bezet) 478 ms SL MUSE Calculated P Mission 45 degrees [facility] MUSE Calculated R Mission -2 degrees [facility] MUSE Calculated T Mission 21 degrees [facility] MUSE Interpretation EKG NORMAL SINUS RHYTHM MINIMAL VOLTAGE CRITERIA FOR LVH, MAY BE NORMAL VARIANT ( R in aVL ) CANNOT RULE OUT ANTERIOR INFARCT , AGE UNDETERMINED ABNORMAL ECG WHEN COMPARED WITH ECG OF 25-NOV-2023 17:36, NO SIGNIFICANT CHANGE WAS FOUND Confirmed by MAR ??PRABHAKAR NIETO ([id number]) on 12/03/2023 5:55:37 PM [facility] MUSE 11/25/2023 6:32 PM CDT 12/03/2023 5:55 PM CDT Reymundo Wilkins MD ECG ORDERABLES Performing Organization Address City/[facility]/ZIP Co de Phone Number [facility] MUSE * TROPONIN-I HIGH SENSITIVE BASELINE + 1HR (11/25/2023 6:25 PM CDT) Troponin I High Sensitive <3 <=35 ng/L 11/25/2023 7:19 PM CDT [facility] Blood BLOOD SPECIMEN / Unknown Venipuncture / Unknown 11/25/2023 6:25 PM CDT 11/25/2023 6:42 PM CDT Reymundo Wilkins MD LAB - CHEMISTRY HERLINDA HERNÁNDEZ [facility] [address] [place] [address], [place] [phone] * TYPE + SCREEN PANEL (11/25/2023 6:25 PM CDT) [facility] Antibody Screen NEG 7:24 PM CDT [facility] BLOOD BANK LAB ABO Rh O POS 11/25/2023 7:24 PM CDT [facility] BLOOD BANK LAB Blood Bank BLOOD SPECIMEN / Unknown Venipuncture / Unknown 11/25/2023 6:25 PM CDT 11/25/2023 6:42 PM CDT Reymundo Wilkins MD LAB - BLOOD BANK ORD KARTHIK [facility] BLOOD [facility]ANK LAB [address] [place] [address], [place] [phone] * TROPONIN-I HIGH SENSITIVE (11/25/2023 5:59 PM CDT) [facility] Troponin I High Sensitive <3 <=35 ng/L 11/25/2023 6:40 PM CDT [facility] Blood BLOOD SPECIMEN / Unknown Venipuncture / Unknown 11/25/2023 5:59 PM CDT 11/25/2023 6:06 PM CDT Manuel Wu MD LAB - CHEMISTRY HERLINDA HERNÁNDEZ [facility] [address] [place] [address], [place] [phone] * (ABNORMAL) COMPREHENSIVE METABOLIC PANEL (11/25/2023 5:59 PM CDT) [facility] BUN 12 7 - 26 mg/dL 11/25/2023 6:36 PM [facility] Creatinine 0.64(L) 0.71 - 1.16 mg/dL 11/25/2023 6:36 PM [facility] Sodium 137 136 - 145 mmol/L 11/25/2023 6:36 PM [facility] Potassium 3.6 3.5 - 4.5 mmol/L 11/25/2023 6:36 PM [facility] Chloride 109(H) 98 - 107 mmol/L 11/25/2023 6:36 PM [facility] CO2 18(L) 22 - 29 mmol/L 11/25/2023 6:36 PM [facility] Glucose 114 70 - 115 mg/dL 11/25/2023 6:36 PM [facility] Calcium 8.9 8.4 - 10.2 mg/dL 11/25/2023 6:36 PM [facility] Protein Total 7.8 6.0 - 8.3 g/dL 11/25/2023 6:36 PM [facility] Albumin 3.5 3.4 - 5.0 g/dL 11/25/2023 6:36 PM [facility] Bilirubin Total 2.0(H) 0.2 - 1.2 mg/dL 11/25/2023 6:36 PM [facility] Alkaline Phosphatase 104 40 - 150 U/L 11/25/2023 6:36 PM [facility] ALT 35 5 - 55 U/L 11/25/2023 6:36 PM [facility] AST 71(H) 5 - 34 U/L 11/25/2023 6:36 PM [facility] Anion Gap 10 6 - 16 11/25/2023 6:36 PM [facility] BUN/Creatinine Ratio 19 7 - 23 11/25/2023 6:36 PM [facility] Osmolality Calculated 285 275 - 295 mOsm/kg 11/25/2023 6:36 PM [facility] Albumin/Globulin Ratio 0.8(L) 1.1 - 2.3 11/25/2023 6:36 PM [facility] eGFR by CKD-EPI >90 >=90 mL/min/1.7 3 m2 11/25/2023 6:36 PM CDT [facility] Blood BLOOD SPECIMEN / Unknown Venipuncture / Unknown 11/25/2023 5:59 PM CDT 11/25/2023 6:06 PM CDT Manuel Wu MD LAB - CHEMISTRY HERLINDA HERNÁNDEZ Performing Organization Address City/[facility]/ZIP Co de Phone Number [address] [address], [facility] [phone] * LIPASE BLOOD (11/25/2023 5:59 PM CDT) Lipase 25 8 - 78 U/L 11/25/2023 6:36 PM CDT [facility] Blood BLOOD SPECIMEN / Unknown Venipuncture / Unknown 11/25/2023 5:59 PM CDT 11/25/2023 6:06 PM CDT Narrative [facility] - 11/25/2023 6:36 PM CDT Lipase results from the [employer] Alinity analyzer may not be comparable with other methodologies. Manuel Wu MD LAB - CHEMISTRY HERLINDA HERNÁNDEZ Performing Organization Address City/[facility]/ZIP Co de Phone Number [address] [address], [place] [phone] Care Teams Sawmill Tally Clerk Relationship Specialty Start Date End Date Eileen Joy MD [address] [place] [address] [phone] PCP - General Internal Medicine 11/26/23
--- OUTSIDE RECORDS SUMMARY | 2024-04-22 16:27 | XMS_ITS | Referral Summary ---
Author Organization [facility] [employer] Address [address] [place] [address] Care Team Providers Care Mortuary Technician Name Role Phone Eileen Joy MD Primary Care Provider [phone] Source Comments [facility] [employer],non-owned Affiliates and Associated Physician Practices is amultiple site organization consisting of ambulatory clinics and hospital sitesin [place], [place], [place] and [place]. This disclosure is being madepursuant to the Care Everywhere program and may not contain all information available regarding this patient. Last updated 17.[facility] [employer] Allergies No known active allergies Medications * Be aware that medications may not be up to date on this document. Alwaysverify current medications with the patient. Medication Sig Dispensed Refills Start Date End Date Status valsartan (Diovan) 80 MG tablet 1 (one) tablet once daily 11/11/2023 Active atorvastatin (Lipitor) 40 MG tablet Take 1 (one) tablet by mouth once daily 10/30/2023 Active famotidine (Pepcid) 20 MG tablet Take 1 (one) tablet by mouth 2 times daily 11/18/2023 Active nadolol (Corgard) 20 MG tablet Take 1 (one) tablet by mouth once daily 10/30/2023 Active fluticasone propionate (Flonase) 50 MCG/ACT nasal spray [place] 2 (two) sprays into each nostril once daily 08/06/2023 Active ondansetron (Zofran) 4 MG tablet Take 1 (one) tablet by mouth every 6 hours as needed for Nausea/Vomiting 24 tablet 11/26/2023 Active pantoprazole EC (Protonix) 40 MG tablet Take 1 (one) tablet by mouth once daily 90 tablet 11/26/2023 Active Social History Tobacco Use Types Packs/Day Years [...] Mass Index 32.44 11/25/2023 5:32 PM CDT Plan of Treatment Not on file Care Teams Mortuary Technician Relationship Specialty [place] [address] [place] [address] [phone] PCP - General Internal Medicine 11/26/23
--- OUTSIDE RECORDS SUMMARY | 2024-04-22 16:27 | XMS_ITS | Clinical Summary ---
Author Organization [facility] Address [address] [place] [address] Care Team Providers Care Wastewater Plant Operator Name Role Phone Eileen Joy MD Primary Care Provider Source Comments [facility],non-owned Affiliates and Associated Physician Practices is amultiple site organization consisting of ambulatory clinics and hospital sitesin [place], [place], [place] and [place]. This disclosure is being madepursuant to the Care Everywhere program and may not contain all information available regarding this patient. Last updated 17.[employer] [facility] Allergies No known active allergies Medications * [...] fluticasone propionate (Flonase) 50 MCG/ACT nasal spray [place] 2 (two) sprays into each nostril once [...] 11/25/2023 5:32 PM CDT Plan of Treatment Health Maintenance Due Date Last Done Comments COLOGUARD (AGES 45-75) - COL ON CA SCREENING 1954 COLON MONITORING 1954 COLONOSCOPY - COLON CA SCREENING 1954 CT COLONOGRAPHY - COLON CA SCREENING 1954 Colorectal Cancer Screening 1954 FIT - COLON CA SCREENING 1954 FLEX SIG - COLON CA SCREENING 1954 HEPATITIS C SCREENING 10/06/1972 DTAP/TDAP/TD VACCINES (1 - Tdap) 1973 PNEUMOCOCCAL VACCINE 50+ (1 of 1 - PCV) 2004 ZOSTER VACCINE (1 of 2) 2004 COVID-19 VACCINE ( - 2023-2 5 season) 2023 INFLUENZA VACCINE (#1) 2023 DEPRESSION SCREENING 03/25/2024 Respiratory Syncytial Virus (RSV) Vaccine Pt: or over 60 yrs (1 - 1-dose 75+ series) 2029 HEPATITIS B VACCINE Aged Out No longe r eligible based on patient's age to complete this topic HIB VACCINE Aged Out No longer eligi ble based on patient's age to complete this topic HPV VACCINE Aged Out No longer eligi ble based on patient's age to complete this topic MENINGOCOCCAL (Group B) VACCINE Aged Out No longer eligible based on patient's age to complete this topic MENINGOCOCCAL VACCINE Aged Out No amish gianna eligible based on patient's age to complete this topic Care Teams Wastewater Plant Operator Relationship Specialty Start Date End Date Eileen Joy MD [address] [place] [address] [phone] PCP - General Internal Medicine 11/26/23
--- OUTSIDE RECORDS SUMMARY | 2024-04-22 22:42 | XMS_ITS | Referral Summary ---
Author Organization [facility] Address [address] [place] [address] Care Team Providers Care Master Data Analyst Name Role Phone Eileen Joy MD Primary Care Provider Source Comments [facility],non-owned Affiliates and Associated Physician Practices is amultiple site organization consisting of ambulatory clinics and hospital sitesin [place], [place], [place] and [place]. This disclosure is being madepursuant to the Care Everywhere program and may not contain all information available regarding this patient. Last updated 17.[facility] Allergies No known active allergies Medications * [...] fluticasone propionate (Flonase) 50 MCG/ACT nasal spray [place] 2 (two) sprays into each nostril once [...] of Treatment Not on file Care Teams Master Data Analyst Relationship Specialty [place] [address] [place] [address] [phone] PCP - General Internal Medicine 11/26/23
--- OUTSIDE RECORDS SUMMARY | 2024-04-22 22:42 | XMS_ITS | Patient Health Summary ---
Author Organization [facility] Address [address] [place] [address] Care Team Providers Care Steel Handler Name Role Phone Eileen Joy MD Primary Care Provider [phone] Note from [facility],non-owned Affiliates and Associated Physician Practices is amultiple site organization consisting of ambulatory clinics and hospital sitesin [place], [place], [place] and [place]. This disclosure is being madepursuant to the Care Everywhere program and may not contain all information available regarding this patient. Last updated 17.[facility] [employer] Allergies No known active allergies Medications * [...] propionate (Flonase) 50 MCG/ACT nasal spray(Started 08/06/2023) [place] 2 (two) sprays into each nostril once [...] DATE/TIME OF EXAM: ??11/26/2023 10:23 AM, LOCATION ??[facility] INDICATION: R11.2: Nausea and vomiting, unspecified [...] evident. Report dictated by John Ling MD, (Pourer). I, Rosa Rosales MD have personally reviewed and interpreted this examination/study. > Interpreting Provider: Rosa Rosales MD on 11/26/2023 11:05 AM Procedure Note Rosa Rosales MD - 11/26/2023 PROCEDURE: XR CHEST 1VW PORTABLE, DATE/TIME OF EXAM: 11/26/2023 10:23AM, LOCATION [facility] INDICATION: R11.2: Nausea and vomiting, unspecified [...] evident. Report dictated by John Ling MD, (Pourer). I, Rosa Rosales MD have personally reviewed and interpreted this examination/study. > Interpreting Provider: Rosa Rosales MD on 11/26/2023 11:05 AM Kelsey Shepherd MD DIAGNOSTIC IMAGING O RDERABLES * (ABNORMAL) PT-INR [facility] (11/26/2023 10:06 AM CDT) Pathologist [facility] PT 16.4(H) 12.1 - 14.8 Seconds 11/26/2023 10:53 AM T [facility] INR 1.4 See Comment 11/26/2023 10:53 AM [facility] Comment:The suggested therap eutic range for standard coumadin (warfarin) therapy is an INR of 2.0-3.0. For high-risk patients (Mechanical Mitral Valve Prosthesis, etc.), the suggested prophylactic therapeutic range is an INR of 2.5-3.5. Blood BLOOD SPECIMEN / Unknown Venipuncture / Unknown 11/26/2023 10:06 AM CDT 11/26/2023 10:13 AM CDT Kelsey Shepherd MD LAB - COAGULATION OR DERABLES [address] [address], [facility] [phone] * (ABNORMAL) CBC W AUTO DIFFERENTIAL (11/26/2023 10:06 AM CDT) Only the most recent of2 resultswithin the time period is included. WBC 6.2 4.0 - 10.7 x10E9/L 11/26/2023 10:44 AM [facility] RBC Count 4.23(L) 4.30 - 5.80 x10E12/L 11/26/2023 10:44 AM [facility] Hemoglobin 14.6 13.3 - 17.5 g/dL 11/26/2023 10:44 AM [facility] Hematocrit 41.9 38.7 - 51.1 % 11/26/2023 10:44 AM [facility] MCV 99.1(H) 80.0 - 98.0 fL 11/26/2023 10:44 AM [facility] MCH 34.5(H) 26.7 - 33.6 pg 11/26/2023 10:44 AM [facility] MCHC 34.8 31.7 - 36.3 g/dL 11/26/2023 10:44 AM [facility] RDW-CV 13.8 11.3 - 14.8 % 11/26/2023 10:44 AM [facility] Platelet Count 62(L) 150 - 420 x10E9/L 11/26/2023 10:44 AM [facility] MPV 12.6(H) 7.8 - 11.4 fL 11/26/2023 10:44 AM [facility] Neutrophil % 54.5 41.0 - 74.0 % 11/26/2023 10:44 AM [facility] Lymphocyte % 35.3 17.0 - 47.0 % 11/26/2023 10:44 AM [facility] Monocyte % 8.4 3.0 - 11.0 % 11/26/2023 10:44 AM [facility] Eosinophil % 1.0 0.0 - 7.0 % 11/26/2023 10:44 AM [facility] Basophil % 0.6 0.0 - 1.6 % 11/26/2023 10:44 AM [facility] Immature Granulocytes % 0.2 0.0 - 1.0 % 11/26/2023 10:44 AM [facility] Neutrophil Absolute 3.36 1.60 - 7.50 x10E9/L 11/26/2023 10:44 AM [facility] Lymphocyte Absolute 2.18 1.00 - 4.40 x10E9/L 11/26/2023 10:44 AM [facility] Monocyte Absolute 0.52 0.15 - 1.00 x10E9/L 11/26/2023 10:44 AM [facility] Eosinophil Absolute 0.06 0.00 - 0.60 x10E9/L 11/26/2023 10:44 AM [facility] Basophil Absolute 0.04 0.00 - 0.13 x10E9/L 11/26/2023 10:44 AM CDT [facility] Blood BLOOD SPECIMEN / Unknown Venipuncture / Unknown 11/26/2023 10:06 AM CDT 11/26/2023 10:25 AM CDT Kelsey Shepherd MD LAB - HEMATOLOGY ORD ERABLES [facility] [address] [place] [address], [facility] [phone] * BLOOD TYPE VERIFICATION (11/26/2023 7:27 AM CDT) ABO Rh O POS 11/26/2023 8:0 1 AM CDT [facility] Blood Bank BLOOD SPECIMEN / Unknown Venipuncture / Unknown 11/26/2023 7:27 AM CDT 11/26/2023 7:34 AM CDT Reymundo Wilkins MD LAB - BLOOD BANK ORD [employer] Performing Organization Address City/[facility]/ZIP Co de Phone Number [facility] [address] [place] [address], [facility] [phone] * CT Abdomen Pelvis W Contrast (11/25/2023 [...] atelectasis/scarring. > Dictated by Eamon Senior DO (assistant professor of radiology). Hernando Salazar MD have personally reviewed and interpreted this examination/study. > Interpreting Provider: Hernando Srinivasan MD on 11/25/2023 9:52 PM Narrative 11/25/2023 9:52 PM CDT PROCEDURE: ??CT ABDOMEN PELVIS W CONTRAST, DATE/TIME OF EXAM: ??11/25/2023 9:24 PM, LOCATION ??[facility] INDICATION: R11.2: Nausea and vomiting, unspecified [...] CONTRAST, DATE/TIME OF EXAM: 49:24 PM, LOCATION [facility] INDICATION: R11.2: Nausea and vomiting, unspecified [...] atelectasis/scarring. > Dictated by Eamon Senior DO (assistant professor of radiology). IHernando MD have personally reviewed and interpreted this examination/study. > Interpreting Provider: Hernando Srinivasan MD on 11/25/2023 9:52 PM Reymundo Wilkins MD CT ORDERABLES * TROPONIN-I HIGH SENSITIVE REFLEX 1HOUR (11/25/2023 7:58 PM CDT) Troponin I High Sensitive <3 <=35 ng/L 11/25/2023 8:55 PM CDT [facility] Delta Troponin I HS 11/25/2023 8:[address] [facility] Comment:Delta value intentio lori not calculated. Baseline to 1 hour specimen collection interval exceeded. Blood BLOOD SPECIMEN / Unknown Venipuncture / Unknown 11/25/2023 7:58 PM CDT 11/25/2023 8:19 PM CDT Reymundo Wilkins MD LAB - CHEMISTRY HERLINDA HERNÁNDEZ Performing Organization Address City/[facility]/ZIP Co de Phone Number [facility] [address] [place] [address], [facility] [phone] * EKG 12-LEAD (11/25/2023 6:32 PM CDT) Only the most recent of2 resultswithin the time period is included. Ventricular Rate 68 BPM [facility] Atrial Rate 68 BPM [facility] P-R Interval 146 ms [facility] QRS Duration ms 90 ms [facility] Q-T Interval ms 450 ms [facility] MUSE QTC Calculation (Bezet) 478 ms SL MUSE Calculated P [place] 45 degrees [facility] MUSE Calculated R [place] -2 degrees [facility] MUSE Calculated T [place] 21 degrees [facility] MUSE Interpretation EKG NORMAL SINUS RHYTHM MINIMAL VOLTAGE CRITERIA FOR LVH, MAY BE NORMAL VARIANT ( R in aVL ) CANNOT RULE OUT ANTERIOR INFARCT , AGE UNDETERMINED ABNORMAL ECG WHEN COMPARED WITH ECG OF 25-NOV-2023 17:36, NO SIGNIFICANT CHANGE WAS FOUND Confirmed by MAR ??PRABHAKAR NIETO ([id number]) on 12/03/2023 5:55:37 PM [facility] MUSE 11/25/2023 6:32 PM CDT 12/03/2023 5:55 PM CDT Reymundo Wilkins MD ECG ORDERABLES Performing Organization Address City/[facility]/ZIP Co de Phone Number [facility] MUSE * TROPONIN-I HIGH SENSITIVE BASELINE + 1HR (11/25/2023 6:25 PM CDT) Troponin I High Sensitive <3 <=35 ng/L 11/25/2023 7:[address] [facility] Blood BLOOD SPECIMEN / Unknown Venipuncture / Unknown 11/25/2023 6:25 PM CDT 11/25/2023 6:42 PM CDT Reymundo Wilkins MD LAB - CHEMISTRY HERLINDA HERNÁNDEZ [facility] [address] [place] [address], [place] [phone] * TYPE + SCREEN PANEL (11/25/2023 6:25 PM CDT) [facility] Antibody Screen NEG 7:24 PM CDT [facility] ABO Rh O POS 11/25/2023 7:24 PM CDT [facility] Blood Bank BLOOD SPECIMEN / Unknown Venipuncture / Unknown 11/25/2023 6:25 PM CDT 11/25/2023 6:42 PM CDT Reymundo Wilkins MD LAB - BLOOD BANK ORD KARTHIK [facility] [address] [place] [address], [place] [phone] * TROPONIN-I HIGH SENSITIVE (11/25/2023 5:59 PM CDT) [facility] Troponin I High Sensitive <3 <=35 ng/L 11/25/2023 6:[address] [facility] Blood BLOOD SPECIMEN / Unknown Venipuncture / Unknown 11/25/2023 5:59 PM CDT 11/25/2023 6:06 PM CDT Manuel Wu MD LAB - CHEMISTRY HERLINDA HERNÁNDEZ [facility] [address] [place] [address], [place] [phone] * (ABNORMAL) COMPREHENSIVE METABOLIC PANEL (11/25/2023 5:59 PM CDT) [facility] BUN 12 7 - 26 mg/dL 11/25/2023 6:36 PM [facility] Creatinine 0.64(L) 0.71 - 1.16 mg/dL 11/25/2023 6:36 PM [facility] Sodium 137 136 - 145 mmol/L 11/25/2023 6:36 PM [facility] Potassium 3.6 3.5 - 4.5 mmol/L 11/25/2023 6:36 PM [facility] Chloride 109(H) 98 - 107 mmol/L 11/25/2023 6:36 PM [facility] CO2 18(L) 22 - 29 mmol/L 11/25/2023 6:36 PM [facility] Glucose 114 70 - 115 mg/dL 11/25/2023 6:36 PM [facility] Calcium 8.9 8.4 - 10.2 mg/dL 11/25/2023 6:36 PM [facility] Protein Total 7.8 6.0 - 8.3 g/dL 11/25/2023 6:36 PM [facility] Albumin 3.5 3.4 - 5.0 g/dL 11/25/2023 6:36 PM [facility] Bilirubin Total 2.0(H) 0.2 - 1.2 mg/dL 11/25/2023 6:36 PM [facility] Alkaline Phosphatase 104 40 - 150 U/L 11/25/2023 6:36 PM [facility] ALT 35 5 - 55 U/L 11/25/2023 6:36 PM [facility] AST 71(H) 5 - 34 U/L 11/25/2023 6:36 PM [facility] Anion Gap 10 6 - 16 11/25/2023 6:36 PM [facility] BUN/Creatinine Ratio 19 7 - 23 11/25/2023 6:36 PM [facility] Osmolality Calculated 285 275 - 295 mOsm/kg 11/25/2023 6:36 PM [facility] Albumin/Globulin Ratio 0.8(L) 1.1 - 2.3 11/25/2023 6:36 PM [facility] eGFR by CKD-EPI >90 >=90 mL/min/1.7 3 m2 11/25/2023 6:[address] [facility] Blood BLOOD SPECIMEN / Unknown Venipuncture / Unknown 11/25/2023 5:59 PM CDT 11/25/2023 6:06 PM CDT Manuel Wu MD LAB - CHEMISTRY HERLINDA HERNÁNDEZ Performing Organization Address City/[facility]/ZIP Co de Phone Number [address] [address], [facility] [phone] * LIPASE BLOOD (11/25/2023 5:59 PM CDT) Lipase 25 8 - 78 U/L 11/25/2023 6:[address] [facility] Blood BLOOD SPECIMEN / Unknown Venipuncture / Unknown 11/25/2023 5:59 PM CDT 11/25/2023 6:[address] [facility] - 11/25/2023 6:36 PM CDT Lipase results from the [employer] Alinity analyzer may not be comparable with other methodologies. Manuel Wu MD LAB - CHEMISTRY HERLINDA HERNÁNDEZ Performing Organization Address City/[facility]/ZIP Co de Phone Number [address] [address], [place] [phone] Care Teams Steel Handler Relationship Specialty Start Date End Date Eileen Joy MD [address] [place] [address] [phone] PCP - General Internal Medicine 11/26/23
--- OUTSIDE RECORDS SUMMARY | 2024-04-22 22:42 | XMS_ITS | Clinical Summary ---
Author Organization [facility] [employer] Address [address] [place] [address] Care Team Providers Care Informatica Developer Name Role Phone Eileen Joy MD Primary Care Provider [phone] Source Comments [facility] [employer],non-owned Affiliates and Associated Physician Practices is amultiple site organization consisting of ambulatory clinics and hospital sitesin [place], [place], [place] and [place]. This disclosure is being madepursuant to the Care Everywhere program and may not contain all information available regarding this patient. Last updated 17.[employer] Allergies No known active allergies Medications * [...] fluticasone propionate (Flonase) 50 MCG/ACT nasal spray [place] 2 (two) sprays into each nostril once [...] age to complete this topic Care Teams Informatica Developer Relationship Specialty Start Date End Date Eileen Joy MD [address] [place] [address] [phone] PCP - General Internal Medicine 11/26/23
--- NOTE | 2024-04-22 22:59 | ED.DIZZY ---
HPI - Dizziness General Chief Complaint: Dizziness Stated Complaint: dizzy Time Seen by Provider: 04/22/24 22:16 History of Present Illness HPI Narrative: 68-year-old male with a past medical history including hypertension and recent dental extraction currently on amoxicillin. Today patient presents to the emergency department for evaluation of vertiginous type symptoms having ongoing for about 1 month. He was seen and evaluated [facility] Department yesterday and underwent a thorough workup with imaging studies, CT scan of his chest, troponin, EKG, urinalysis. His workup old appears unremarkable aside from the CT scan of the chest which I do not have a read or available imaging. His dictation from previous provider notes that he had some fluid and potential cardiomegaly. They were discharged home yesterday with instructions to follow-up on outpatient basis. They present to the emergency department today for evaluation of his persistent vertiginous symptoms. Patient is primarily Turkish-speaking and offset printer was used for bedside assessment and examination. Patient himself verbalizes that when he gets up from a seated position or looks in particular directions he gets profound sensation of vertigo with room spinning sensations. He does not feel lightheaded or feel like he is going to pass out. When he is at rest he does not have symptoms. Denies any headache or vision changes, no trauma to the head or neck. Denies any chest pain, shortness a breath, nausea, vomiting, abdominal pain, back pain, fever, chills. Endorses some muffled hearing changes for the last few years but no visual problems or recent ear infections. He is still taking amoxicillin for dental infection. Related Data Home Medications ?Medication ?Instructions ?Recorded ?Confirmed ?Last Taken ?Type atorvastatin 40 mg tablet mg 05/29/22 Unknown History famotidine 20 mg tablet mg 05/29/22 05/29/22 Unknown History nadolol 20 mg tablet mg 05/29/22 Unknown History Allergies Allergy/AdvReac Type Severity Reaction Status Date / Time No Known Allergies Allergy Verified 05/29/22 11:06 Review of Systems Review of Systems: As reviewed above in HPI Exam Narrative: GENERAL: [Well-appearing, well-nourished, and in no acute distress.] HEAD: [Normocephalic, atraumatic.] EYES: [PERRLA and EOMI.] ENT: Nares clear, no rhinorrhea or epistaxis. Mucous membranes moist. NECK: Supple. CHEST: [Clear to auscultation. No respiratory distress.] HEART: [Regular rate and rhythm]. No murmur heard. [Normal peripheral pulses.] ABDOMEN: [Soft, nondistended], [nontender], [No rigidity or guarding] EXTREMITIES: Normal range of motion. [No edema.] SKIN: Warm, dry, no rash. NEURO: [No focal deficits]. Alert and oriented [x3.] No nystagmus, no ataxia in the arms or legs, positional vertigo listed with transitions from seated to standing position. Non ataxic gait, full strength and sensation throughout both arms and legs. No sensory deficits. PSYCH: [Normal mood and affect.] Course Vital Signs Vital signs: Vital Signs Temperature 36.7 C 04/22/24 16:23 Pulse Rate 65 04/22/24 16:23 Respiratory Rate 16 04/22/24 16:23 Blood Pressure 142/67 H 04/22/24 16:23 Pulse Oximetry 96 04/22/24 16:23 Temperature 36.7 C 04/22/24 16:23 Pulse Rate 88 04/23/24 02:00 Respiratory Rate 14 04/23/24 02:00 Blood Pressure 144/81 H 04/23/24 02:00 Pulse Oximetry 100 04/23/24 02:00 MDM - Dizziness MDM Narrative Medical decision making narrative: 68-year-old male presenting to the emergency department for evaluation of vertiginous symptoms. He was seen and evaluated at [address] [place] [address] yesterday and underwent cardiac workup and CT imaging of his chest. He was discharged home with instructions for outpatient follow-up. Patient states he feels persistently vertiginous and was not given any medications to try. He has classical signs and symptoms of benign paroxysmal positional vertigo based on examination. No central concerns at this time by historical features however given his age and risk factors imaging studies advanced such as CT head and CT angiography of his head neck or warranted at this time. I reviewed patient's previous workup on the discharge paperwork he received and there is no read of the CT chest that he obtained. Will try and reach out to our radiologist to over read the imaging discs that were provided to us. At this time will trial meclizine and given a fluid bolus to see how he response. Cardiac workup was ordered this time in addition to his CTs. CT angiography and CT of his head shows no acute intracranial process, occlusions, stenosis or aneurysms. Patient was re-evaluated after meclizine had complete symptomatic. Workup shows no leukocytosis or anemia. Normal coagulation studies. Electrolytes within normal limits, normal kidney function, normal glucose, negative troponin. The CT scan of his chest CT disc that we received from his previous hospitalization was read by our radiologist with no acute intrathoracic process detected, no pleural effusions, some occasional cirrhotic changes of the liver were seen as well as some chronic interstitial lung disease but no acute disease. Given patient's complete symptomatic resolution with meclizine as unremarkable CT scans I believe he likely has benign positional paroxysmal vertigo which could have been exacerbated by his recent dental infection that he is tilting antibiotics for. At this time he is safe and stable for discharge home and will be sent home with a prescription for meclizine as needed and given ear nose and throat follow-up instructions. All patient's questions were answered and he was safe for discharge. Medical Records Attestation: I reviewed the patient's medical records. Lab Data Attestation: I reviewed the patient's lab results. 04/22/24 23:15 04/22/24 23:15 Labs: Lab Results 04/22/24 Range/Units 23:15 WBC 6.8 (4.5-10.0) K/mm3 RBC 4.39 L (4.6-6.20) M/mm3 Hgb 14.6 (14.0-18.0) g/dL Hct 42.9 (42.0-52.0) % MCV 97.7 (80-100) fl MCH 33.3 (26-34) pg MCHC 34.0 (32-36) g/dl RDW 14.1 (11.5-14.5) % Plt Count 55 L (150-375) k/mm3 MPV 12.4 H (7.4-10.4) fl Immature Gran % (Auto) 0.1 (0-0.5) % Neut % (Auto) 39.8 L (45.5-73.1) % Lymph % (Auto) 48.9 H (18.3-44.2) % Wilkinson % (Auto) 8.7 H (2.6-8.5) % Eos % (Auto) 1.6 (0-4.4) % Baso % (Auto) 0.9 (0.2-1.2) % Lymph # (Auto) 3.31 H (0.9-3.2) K/mm3 Wilkinson # (Auto) 0.6 (0.1-0.6) K/mm3 Eos # (Auto) 0.1 (0-0.3) K/mm3 Baso # (Auto) 0.1 (0.0-0.1) K/mm3 Abs Immat Gran (auto) 0.01 (0.00-0.031) K/mm3 Absolute Neuts (auto) 2.7 (1.3-6.7) K/mm3 Absolute Nucleated RBC 0.000 (0.0-0.012) K/mm3 Nucleated RBC % 0.0 (0.0-0.2) % % Immature Plt Fraction 12.2 H (0.9-11.2) % PT 15.7 H (11.1-14.7) Seconds INR 1.2 APTT 24.6 (22.3-36.8) Seconds Sodium 138 (137-145) mmol/L Potassium 4.2 (3.4-5.0) mmol/L Chloride 107 (98-107) mmol/L Carbon Dioxide 20 L (22-30) mmol/L Anion Gap 11 (4-12) mmol/L BUN 16 (9-20) mg/dL Creatinine 0.54 L (0.7-1.3) mg/dL Estim Creat Clear Calc 110 ml/min Estimated GFR > 60 (59 - ) Glucose 102 (65-110) mg/dL Calcium 9.4 (8.4-10.2) mg/dL Total Bilirubin 1.3 (0.2-1.3) mg/dL AST 50 (17-59) U/L ALT 29 (6-50) U/L Alkaline Phosphatase 190 H (38-126) U/L Troponin I 0.012 (0.000-0.034) ng/mL Total Protein 8.0 (6.3-8.2) g/dL Albumin 4.2 (3.5-5.1) g/dL Imaging Data Attestation: I personally reviewed and interpreted this imaging study as follows: My impression: Impressions CT Consultation 04/22/24 23:57 IMPRESSION: No acute thoracic process detected. 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 Mild cardiomegaly. No pleural effusion is detected. Cirrhotic change in the liver. Chest X-Ray 04/23/24 00:09 IMPRESSION: Mild chronic interstitial change. Mild cardiomegaly. Radiologist's impression: CTA of the head neck shows no acute intracranial process, occlusions or stenosis. Discharge Plan Discharge Clinical Impression: Benign paroxysmal positional vertigo Patient Disposition: Home, Self-Care Condition: Stable Instructions: Antibiotic Form, Benign Paroxysmal Positional Vertigo (ED) Additional Instructions: We will send you home with meclizine to help continue controlling her symptoms. If you have any worsening despite this medication please return for repeat evaluation otherwise we will send you home with instructions for your nose and throat follow-up. Follow-up with your regular doctor as well for general health appointments. Patient Language: Turkish Prescriptions: New meclizine 25 mg tablet 25 mg PO TID PRN (Reason: dizziness) 20 Days Qty: 60 0RF No Action atorvastatin 40 mg tablet nadolol 20 mg tablet famotidine 20 mg tablet cyclobenzaprine 10 mg tablet 10 mg PO Q8H PRN (Reason: muscle spasm) 7 Days Qty: 21 0RF naproxen 500 mg tablet 500 mg PO BID PRN (Reason: pain) 7 Days Qty: 14 0RF Follow-up/Referrals: [place],DAT Gee [Primary Care Provider] - Francis Arora MD [Physician] - 1 Week (Benign paroxysmal positional vertigo) Stand Alone Forms: Work/School Release IP Time of Disposition: 02:13
[2024-04-22 23:21] LABS: Basophils Absolute Auto 0.1 K/mm3 (0.0-0.1); Basophils Percent Auto 0.9 % (0.2-1.2); Eosinophils Absolute Auto 0.1 K/mm3 (0-0.3); Eosinophils Percent Auto 1.6 % (0-4.4); Hematocrit 42.9 % (42.0-52.0); Hemoglobin 14.6 g/dL (14.0-18.0); Immature Granulocyte Absolute 0.01 K/mm3 (0.00-0.031); Immature Granulocyte Percent A 0.1 % (0-0.5); Immature Platelet Fraction Pct 12.2 % (0.9-11.2); Lymphocytes Absolute Auto 3.31 K/mm3 (0.9-3.2); Lymphocytes Percent Auto 48.9 % (18.3-44.2); Mean Corpuscular Hemoglobin 33.3 pg (26-34); Mean Corpuscular Volume 97.7 fl (80-100); Mean Platelet Volume 12.4 fl (7.4-10.4); Monocytes Absolute Auto 0.6 K/mm3 (0.1-0.6); Monocytes Percent Auto 8.7 % (2.6-8.5); Neutrophils Absolute Auto 2.7 K/mm3 (1.3-6.7); Neutrophils Percent Auto 39.8 % (45.5-73.1); Platelet Count Result 55 k/mm3 (150-375); Red Blood Count 4.39 M/mm3 (4.6-6.20); Red Cell Distribution Width 14.1 % (11.5-14.5); White Blood Count 6.8 K/mm3 (4.5-10.0)
[2024-04-22] MEDS: LACTATED RINGERS 1,000 ML 999 ML IV CONT (23:27)
[2024-04-22] MEDS: MECLIZINE HCL 25 MG TABLET PO (23:27)
[2024-04-22 23:28] LABS: Alanine Aminotransferase 29 U/L (6-50); Albumin Level 4.2 g/dL (3.5-5.1); Alkaline Phosphatase 190 U/L (38-126); Anion Gap 11 mmol/L (4-12); Aspartate Amino Transferase 50 U/L (17-59); Bilirubin,Total 1.3 mg/dL (0.2-1.3); Blood Urea Nitrogen 16 mg/dL (9-20); Calcium 9.4 mg/dL (8.4-10.2); Carbon Dioxide 20 mmol/L (22-30); Chloride 107 mmol/L (98-107); Estimated CRCL calculation 110 ml/min; Estimated Glomerular Filt Rate > 60; Glucose 102 mg/dL (65-110); Potassium 4.2 mmol/L (3.4-5.0); Sodium 138 mmol/L (137-145)
[2024-04-22 23:34] LABS: INR 1.2; Partial Thromboplastin Time 24.6 Seconds (22.3-36.8); Prothrombin Time 15.7 Seconds (11.1-14.7)
[2024-04-22 23:41] LABS: Troponin I 0.012 ng/mL (0.000-0.034)
[2024-04-23 02:00] VITALS: BP 144/81; PULSE 88; RESP 14; O2SAT 100
== END 2024-04-23 02:46 | disposition home or self-care (01) ==
PROVIDERS: Emergency Provider Student in an Organized Health Care Education/Training Program; PCP Registered Nurse
DX: H81.10 Benign paroxysmal vertigo, unspecified ear (principal); I51.7 Cardiomegaly; Z79.899 Other long term (current) drug therapy; R91.8 Other nonspecific abnormal finding of lung field; R93.2 Abnormal findings on diagnostic imaging of liver and biliary tract
CPT/HCPCS: 36415; 70496; 70498; 71045; 80053; 84484; 85025; 85055; 85610; 85730; 96360; 99199; 99284; A9270; J7120; Q9967